=== PATIENT | female | born 1960 | race African-American/Black ===

== ENCOUNTER 2017-02-03 11:59 | Emergency (ER) | payer OTHER, BC ==
[~2017-02-03] VITALS: Ht 165.1 cm; Wt 65.8 kg
[~2017-02-03 11:59] MED LIST: FISH OIL 1,001000 M2 PO; IRON325 PO; PROVERA10 MG PO; UNICOMPLEX M TA1 TA1 PO; ZOFRAN4 MG PO
[2017-02-03] MEDS ORDERED: NORCO 5-325 TA1 EACH PO (12:12)
[2017-02-03 12:57] VITALS: BP 130/79
[2017-02-03] MEDS ORDERED: ZOFRAN ODT4 M1 PO (16:10)
== END 2017-02-03 12:58 | disposition home or self-care (01) ==
LOC: ER 11:59
DX: S39.012A Strain of muscle, fascia and tendon of lower back, initial encounter (principal); Z91.041 Radiographic dye allergy status; X50.0XXA Overexertion from strenuous movement or load, initial encounter; Y93.89 Activity, other specified; Y92.238 Other place in hospital as the place of occurrence of the external cause; Y99.0 Civilian activity done for income or pay

== ENCOUNTER 2018-02-14 09:38 | Inpatient (IN) | payer BC, OTHER ==
[~2018-02-14] VITALS: Ht 167.6 cm; Wt 74.0 kg
--- NOTE | ~2018-02-14 | EXE ---
[facility] [address] [address] STRESS ECHOCARDIOGRAM Name: LETTY SINGH Room #: 201-P [facility] IN ..#: [id number] Admission: 02/14/18 Attend Phys: Moshe Alvarez MD Discharge: Date of : 58 Date of Service: 02/14/18 1457 Report #: [id number] THIS REPORT FOR: //name// APPROVED REPORT Study performed: 02/14/2018 13:07:31 Exam: Stress Echocardiogram Indication: Chest pain Patient Location: Echo lab Stress Nurse: Jennyfer Jensen RN Room #: 201 Ht: 5 ft 6 in HR: 88 bpm BP: 131/80 mmHg Rhythm: NSR Medical History Allergies: Listed on wrksht Procedure The patient underwent an Exercise Stress Test using the Santiago Protocol. Blood pressure, heart rate, and EKG were monitored. An Echocardiogram was performed by legal technician in four stages in quad fashion. At peak stress, four selected images were obtained and placed side by side with resting images for comparison. Stress Test Details Stress Test: Exercise stress testing was performed using a Santiago protocol. HR Resting HR: 88 bpm Max Heart Rate (APMHR): 162 bpm Max HR Achieved: 176 bpm Target HR (85% APMHR): 137 bpm % of APMHR: 108 Recovery HR: 96 bpm HR response to stress: Normal HR response to stress BP Resting BP: 131/80 mmHg Max BP: 198/90 mmHg Recovery BP: 142/64 mmHg BP response to stress: Normal blood pressure response to stress. ECG Resting ECG: Sinus Rhythm [facility] [address] [place] [address] STRESS ECHOCARDIOGRAM Name: LETTY SINGH Room #: 201-P [facility] IN [facility]#: [id number] Admission: 02/14/18 Attend Phys: Moshe Alvarez MD Discharge: Date of : 58 Date of Service: 02/14/18 1457 Report #: [id number] Stress ECG: Sinus Rhythm ST Change: Normal Maximum ST Deviation: 0 mm Arrhythmia: None Recovery ECG: Sinus Rhythm Recovery ST Change: Normal Recovery ST Deviation: 0 mm Recovery Arrhythmia: None Clinical Reason for Termination: Completed protocol, fatigue Stress Symptoms: Fatigue Exercise duration: 6 min 41 sec Highest Stage Achieved: Stage 3: 3.4 mph at 14% grade. Exercise capacity: 9.00 METs Angina Score: None Stress ECG Conclusion Clinical: Non-ischemic ECG: Non-ischemic Carmichael Treadmill Score is 6.0 which is Low risk. Pre-Stress Echo The resting Echocardiogram showed normal left ventricular contractility with an estimated Ejection Fraction of about 60-65%. Post-Stress Echo The stress Echocardiogram showed normal left ventricular contractility with an estimated Ejection Fraction of about 65-70%. Conclusion Clinical Response: Non-ischemic Exercise Capacity: Average Stress ECG Response: Non-ischemic Stress Echo Images: Non-ischemic The left ventricle is normal in size and wall thickness in both the rest and stress images. Normal stress echocardiogram with maximal exercise stress. Other Information Study Quality: Good <Conclusion> The left ventricle is normal in size and wall thickness in both the [facility] [address] [place] [address] STRESS ECHOCARDIOGRAM Name: LETTY SINGH Room #: 201-P [facility] IN [facility]#: [id number] Admission: 02/14/18 Attend Phys: Moshe Alvarez MD Discharge: Date of : 58 Date of Service: 02/14/181456 Report #: [id number] rest and stress images. Normal stress echocardiogram with maximal exercise stress. <ELECTRONICALLY SIGNED> By: Berny Casarez MD, FACC 02/14/181456 56 56 Berny Casarez MD, FACC /INF
--- NOTE | ~2018-02-14 | EKG ---
[address] [address] ELECTROCARDIOGRAM REPORT Name: LETTY SINGH Room #: 170-5 ADM IN M.R.#: [id number] Admission: 02/14/18 Attend Phys: Moshe Alvarez MD Discharge: Date of : 58 Report #: [id number] THIS REPORT FOR: //name// [facility] ED Test Date: 2018-02-14 Test Time: 10:12:10 Pat Name: LETTY SINGH Department: Room: 170 Gender: F Registered Massage Therapist: : 1960 Requested By: Steve Eden Order Number: [id number] MD: Jose Segundo Measurements Intervals [place] Rate: 67 P: 61 [place]: 171 QRS: 26 QRSD: 88 T: 38 QT: 395 QTc: 417 Interpretive Statements Sinus rhythm Compared to ECG 02/03/2017 14:03:33 No significant changes Electronically Signed On 02-14-2018 13:03:01 [employer] by Jose Segundo [email or web address] <ELECTRONICALLY SIGNED> By: Jose Segundo MD 02/14/18 1303 1012 1012 MD CYNTHIA Titus
--- NOTE | ~2018-02-14 | PATH ---
[facility] [place] [address] PATHOLOGY RPT PROCEDURE Name: LETTY HUITRON Room #: 201-P DIS IN M.R.#: [id number] Admission: 02/14/18 Date of : 58 Discharge: 02/15/18 Report #: [id number] Path Case #: [id number] [facility] Accession Number: [id number] . 01 Material submitted: . BX OF GASTRITIS R/O H PYLORI . 01 Clinical history: . Pre-OP DX: Noncardiac CP Post-OP DX: Gastritis, esophagitis, hiatal hernia . 02 Diagnosis: Gastric mucosa, gastritis, endoscopic biopsy: - Mild reactive gastropathy. - Negative for intestinal metaplasia or atrophy. - Negative for Helicobacter pylori. (IUV:landscaper; 02/16/2018) MBR/02/16/2018 . 02 Electronically signed: . Michelle Schneider MD, Pathologist NPI- [id number] . 01 Gross description: . Received in formalin labeled "Letty Huitron, BX gastritis, rule out H. pylori," are 5 segments of cooper soft tissue measuring 2.0 x 0.6 x 0.2 cm in aggregate dimensions and ranging from 0.3 to 0.7 cm in maximum dimension. The specimen is submitted entirely in cassette A1. (TSD; 02/15/2018) TOB/TOB . 02 Pathologist provided ICD-10: K31.9 . 02 CPT . 150945 Specimen Comment: A courtesy copy of this report has been sent to Specimen Comment: [phone]. Specimen Comment: Report sent to Performed at: [address], [place] [id number] MD Jerrod Jean Baptiste MD Phone: [phone] Performed at: [address] [id number] MD Michelle Schneider MD Phone: [phone]
--- NOTE | ~2018-02-14 | P ---
[facility] [address] [place] [address] PROCEDURE REPORT Name: LETTY SINGH Room #: 201-P [facility] IN ..#: [id number] Admission: 02/14/18 Attend Phys: Moshe Alvarez MD Discharge: 02/15/18 Date of : 58 Report #: [id number] THIS REPORT FOR: //name// CC: Moshe Santos MD BRIEF HISTORY: The patient is a 57-year-old woman who presented to [facility] with atypical chest pain. PREOPERATIVE DIAGNOSIS: Atypical chest pain. POSTOPERATIVE DIAGNOSES: 1. Grade C erosive esophagitis. 2. A 3-cm sliding type hernia. 3. Diffuse gastritis with a few scattered erosions. 4. Surgical changes consistent with a previous Lidya fundoplication. MEDICATIONS: Deep sedation with propofol per anesthesia. SPECIMEN: Biopsies of gastritis. ESTIMATED BLOOD LOSS: 3 mL. PROCEDURE: EGD with biopsy. FINDINGS: Prior to propofol sedation, the procedure of upper endoscopy was reviewed with the patient as well as potential risks and its complications. She indicates she understands and desires to proceed. DESCRIPTION OF PROCEDURE: With the patient in left lateral decubitus position, the Olympus video endoscope was inserted in the cervical esophagus under direct vision without difficulty. Examination of this organ through its entire length revealed normal esophageal mucosa down the squamocolumnar junction. However, there were erosive changes along the squamocolumnar junction along the top of folds consistent with grade C erosive esophagitis. The scope was advanced fully into the stomach, which was examined on end view as well as retroflexed views. As we passed in the stomach, a 3-cm hiatus hernia was encountered. The mucosa and hernia was unremarkable. The scope was advanced fully into the stomach, which was examined on end view as well as retroflexed views. There was gastritis in the antrum. A couple of small erosions were seen, but ulcer not identified. There was no evidence of bleeding. Upon retroflexion, changes of Ldiya fundoplication could be seen. However, the Lidya was fairly lucid, I can clearly see up into the esophagus from the retroflexed position. There was also a small amount of bile in the stomach. The pylorus, duodenal bulb, and postbulbar sweep were inspected and noted to be unremarkable. At that point, the scope was slowly withdrawn and careful circumferential views confirmed the [facility] [address] [place] [address] PROCEDURE REPORT Name: LETTY SINGH Room #: 201-P [facility] IN [facility].#: [id number] Admission: 02/14/18 Attend Phys: Moshe Alvarez MD Discharge: 02/15/18 Date of : 58 Report #: [id number] above findings. The patient tolerated the procedure well. DISPOSITION: The patient with atypical chest pain. She has had previous surgery for a Lidya. However, she reports it was too tight and they had to redo it at a second procedure due to problems with dysphagia. She reports that she has not had any further problems of dysphagia. She has not had further problems with dysphagia since the surgery. Dr. Palencia's note indicates she is having dysphagia. The patient clarified the dysphagia was only after surgery and she has not had problems in recent months. She clearly has esophagitis that may be the cause of her chest pain. We will place her on pantoprazole. She is to follow up if her symptoms do not resolve. If she continues to have difficulty with chest pain and reflux symptoms, she may consider surgery, again possibly repair of her hiatus hernia and an antireflux procedures such as a LINX procedure since she has had a Lidya with problems. From a GI standpoint, no further intervention is planned this admission. <ELECTRONICALLY SIGNED> By: Vijay Tan MD 02/17/18 1030 [id number] [id number] Vijay Tan MD /nt
[~2018-02-14 09:38] MED LIST changes: +NORCO 5-325 TA1 EACH PO; +ZOFRAN ODT4 M1 PO
[2018-02-14 10:14] LABS: ABSOLUTE NEUTROPHILS 3.1 thou/uL (1.4-8.2); BASOPHILS 0.6 % (0.0-2.0); EOSINOPHILS 2.2 % (0.0-3.0); HEMATOCRIT 37.2 % (37.0-47.0); HEMOGLOBIN 12.8 gm/dL (12.0-15.0); LYMPHOCYTES 31.8 % (24.0-44.0); MCH 29.7 pg (26.0-34.0); MCHC 34.5 g/dL (28.0-37.0); MCV 86.2 fL (80.0-100.0); MONOCYTES 6.9 % (1.0-8.0); PLATELET COUNT 182 thou/uL (150-400); POLYS 58.5 % (36.0-66.0); RBC 4.31 mil/uL (4.20-5.00); RDW 12.5 % (10.5-14.5); WBC 5.3 thou/uL (4.0-11.0)
[2018-02-14 10:20] LABS: ANION GAP 8 mmol/L (7-16); BUN 14 mg/dL (7-18); CALCIUM 9.5 mg/dL (8.5-10.1); CHLORIDE 106 mmol/L (98-107); CO2 26 mmol/L (21-32); CREATININE 0.7 mg/dL (0.6-1.0); GLUCOSE 92 mg/dL (74-106); POTASSIUM 3.9 mmol/L (3.5-5.1); SODIUM 140 mmol/L (136-145)
[2018-02-14 10:29] LABS: TROPONIN-I <0.06 ng/mL (<0.06)
[2018-02-14] MEDS ORDERED: PROBIOTIC1 EAC1 PO (11:12)
[2018-02-14 11:45] VITALS: BP 131/80
[2018-02-14 12:45] VITALS: BP 160/78
[2018-02-14 12:54] LABS: CHOLESTEROL 245 mg/dL (<200); HDL CHOLESTEROL 71 mg/dL (>40); LDL CHOLESTEROL 161 mg/dL (<100); TC:HDL 3.5 Ratio (Not establshd); TRIGLYCERIDE 65 mg/dL (<150); VLDL 13 mg/dL (<40)
[2018-02-14 13:58] LABS: LIPASE 144 U/L (73-393)
[2018-02-14 14:15] VITALS: BP 126/88
[2018-02-14 19:49] VITALS: BP 104/63
[2018-02-14 23:38] VITALS: BP 114/62
[2018-02-15 04:25] VITALS: BP 125/82
[2018-02-15 08:21] VITALS: BP 125/77
[2018-02-15 12:02] VITALS: BP 125/74
[2018-02-15] MEDS ORDERED: PROTONIX40 M1 PO (14:52)
[2018-02-15 14:59] VITALS: BP 125/74
== END 2018-02-15 15:40 | disposition home or self-care (01) | DRG 382 ==
LOC: ER 09:38 → 2N 11:31 → EROBS 11:31 → 2N 13:55 → ENTRNSPT 02-15 15:29 → EDTRNSPTSTS 02-15 15:31 → 2N 02-15 15:40
PROVIDERS: Emergency Medicine; Nurse Practitioner Adult Health
PROC: 0DB68ZX Excision of Stomach, Via Natural or Artificial Opening Endoscopic, Diagnostic (ICD-10-PCS; principal; 2018-02-14)
DX: K22.10 Ulcer of esophagus without bleeding (principal); K29.70 Gastritis, unspecified, without bleeding; E78.5 Hyperlipidemia, unspecified; K21.9 Gastro-esophageal reflux disease without esophagitis; K59.00 Constipation, unspecified; E78.00 Pure hypercholesterolemia, unspecified; K44.9 Diaphragmatic hernia without obstruction or gangrene; Z88.6 Allergy status to analgesic agent; Z91.041 Radiographic dye allergy status; Z82.49 Family history of ischemic heart disease and other diseases of the circulatory system; Z86.718 Personal history of other venous thrombosis and embolism; Z90.49 Acquired absence of other specified parts of digestive tract; Z87.891 Personal history of nicotine dependence; Z86.010 Personal history of colon polyps
CPT/HCPCS: 10081; 62110; 62900; 70005